=== PATIENT | female | born 1990 | race Caucasian/White ===

== ENCOUNTER 2018-04-03 20:36 | Emergency (ER) | payer OTHER ==
--- NOTE | 2018-04-03 20:59 | PDOC ---
Rapid Medical Evaluation Chief Complaint: Carbon Monoxide Exposure Time Seen by Provider: 04/03/18 20:56 Medical Evaluation: 04/03/18 20:57 c/o headache and feeling tired. reports that there was a slow gas leak and carbon monoxide exposure. PE : patient alert A; carbon monoxide exposure P: abg oxygen Discharge Disposition - Diagnosis Carbon monoxide exposure - Referrals - Patient Instructions - Post Discharge Activity
[2018-04-03 21:00] VITALS: BP 113/63; TEMP 98.3; BMI 34.0
[2018-04-03 22:31] LABS: ARTERIAL BLD GAS O2 SATURATION 96.6 % (90-98.9); ARTERIAL BLOOD GAS BASE EXCESS 0.9 meq/l (-2-2); ARTERIAL BLOOD GAS PCO2 40.3 mmHg (35-45); ARTERIAL BLOOD GAS pH 7.41 (7.35-7.45); CARBOXYHEMOGLOBIN 1.8 gm% (0.5-2.0)
[2018-04-03 22:33] LABS: ALLENS TEST POSITIVE
--- NOTE | 2018-04-03 22:43 | PDOC ---
History of Present Illness <Valerie Presley - Last Filed: 04/03/18 22:41> - General History Source: Patient Exam Limitations: No Limitations - History of Present Illness Initial Comments: 04/03/18 23:33 The patient 27-year-old female, with no past medical history, who presents to the ED for possible carbon monoxide exposure during the past 2 weeks. The patient reports intermittent headaches and nausea. She reports feeling short of breath and fatigued recently. The patient denies any fever, chills, cough, vomiting, diarrhea, or abdominal pain. Denies any chest pain or palpitations. Denies any urinary complaints. Allergies: NKA Surgical History: gastric bypass surgery. <Hallie Maxwell - Last Filed: 04/03/18 23:58> - General Chief Complaint: Carbon Monoxide Exposure Stated Complaint: R/O CARBON MONOXIDE EXPOSURE Time Seen by Provider: 04/03/18 20:56 Past History - Past Medical History COPD: No Other medical history: Pt denies - Surgical History Cholecystectomy: Yes GI Surgery: Yes (Gastric bypass) - Suicide/Smoking/Psychosocial Hx Smoking History: Never smoked Have you smoked in the past 12 months: No Information on smoking cessation initiated: No Hx Alcohol Use: No Drug/Substance Use Hx: No Substance Use Type: None <Valerie Presley - Last Filed: 04/03/18 22:41> <Hallie Maxwell - Last Filed: 04/03/18 23:58> - Past Medical History Allergies/Adverse Reactions: Allergies Allergy/AdvReac Type Severity Reaction Status Date / Time No Known Allergies Allergy Verified 04/03/18 20:57 Review of Systems - Review of Systems Able to Perform ROS?: Yes Comments:: 04/03/18 23:46 GENERAL/CONSTITUTIONAL: (+)Fatigue. No fever or chills. No weakness. HEAD, EYES, EARS, NOSE AND THROAT: No change in vision. No ear pain or discharge. No sore throat. CARDIOVASCULAR: (+)Shortness of breath. No chest pain. RESPIRATORY: No cough, wheezing, or hemoptysis. GASTROINTESTINAL: (+)Nausea. No vomiting, diarrhea or constipation. GENITOURINARY: No dysuria, frequency, or change in urination. MUSCULOSKELETAL: No joint or muscle swelling or pain. No neck or back pain. SKIN: No rash NEUROLOGIC: (+)Headache. No vertigo, loss of consciousness, or change in strength/sensation. ENDOCRINE: No increased thirst. No abnormal weight change. HEMATOLOGIC/LYMPHATIC: No anemia, easy bleeding, or history of blood clots. ALLERGIC/IMMUNOLOGIC: No hives or skin allergy. <Hallie Maxwell - Last Filed: 04/03/18 23:58> *Physical Exam - Vital Signs Last Vital Signs Temp Pulse Resp BP Pulse Ox 98.3 F 66 18 113/63 97 04/03/18 20:57 04/03/18 20:57 04/03/18 20:57 04/03/18 20:57 04/03/18 20:57 <Valerie Presley - Last Filed: 04/03/18 22:41> - Vital Signs Last Vital Signs Temp Pulse Resp BP Pulse Ox 98.3 F 66 18 113/63 97 04/03/18 20:57 04/03/18 20:57 04/03/18 20:57 04/03/18 20:57 04/03/18 20:57 - Physical Exam Comments: 04/03/18 23:49 GENERAL: Awake, alert, and fully oriented, in no acute distress HEAD: No signs of trauma EYES: PERRLA, EOMI, sclera anicteric, conjunctiva clear ENT: Auricles normal inspection, hearing grossly normal, nares patent, oropharynx clear without exudates. Moist mucosa NECK: Normal ROM, supple, no lymphadenopathy, JVD, or masses LUNGS: Breath sounds equal, clear to auscultation bilaterally. No wheezes, and no crackles HEART: Regular rate and rhythm, normal S1 and S2, no murmurs, rubs or gallops ABDOMEN: Soft, nontender, normoactive bowel sounds. No guarding, no rebound. No masses EXTREMITIES: Normal range of motion, no edema. No clubbing or cyanosis. No cords, erythema, or tenderness NEUROLOGICAL: Cranial nerves II through XII grossly intact. Normal speech, normal gait SKIN: Warm, Dry, normal turgor, no rashes or lesions noted. <Hallie Maxwell - Last Filed: 04/03/18 23:58> ED Treatment Course - ADDITIONAL ORDERS Additional order review: Laboratory Results 04/03/18 22:05 Puncture Site Right radial ABG pH 7.41 ABG pCO2 at Pt Temp 40.3 ABG pO2 at Pt Temp 80.0 ABG HCO3 25.0 ABG O2 Sat (Measured) 96.6 ABG O2 Content 15.1 ABG Base Excess 0.9 Richard Test Positive Carboxyhemoglobin 1.8 Methemoglobin 1.4 O2 Delivery Device N/c Oxygen Flow Rate 2l <Valerie Presley - Last Filed: 04/03/18 22:41> - ADDITIONAL ORDERS Additional order review: Laboratory Results 04/03/18 22:05 Puncture Site Right radial ABG pH 7.41 ABG pCO2 at Pt Temp 40.3 ABG pO2 at Pt Temp 80.0 ABG HCO3 25.0 ABG O2 Sat (Measured) 96.6 ABG O2 Content 15.1 ABG Base Excess 0.9 Richard Test Positive Carboxyhemoglobin 1.8 Methemoglobin 1.4 O2 Delivery Device N/c Oxygen Flow Rate 2l <Hallie Maxwell - Last Filed: 04/03/18 23:58> Medical Decision Making - Medical Decision Making 04/03/18 22:41 27yo female with carbon monoxide exposure -has had intermittent nausea and headaches. -currently on O2 - feeling better -neuro intact -will obtain abg -will monitor and reassess 04/03/18 22:42 abg does not show an elevated carboxyhgb level pt is stable for d/c to home. <Valerie Presley - Last Filed: 04/03/18 22:41> *DC/Admit/Observation/Transfer - Discharge Dispostion Decision to Admit order: No - Attestations Physician Attestion: 04/03/18 22:43 I, Dr. Valerie Presley DO, attest that this document has been prepared under my direction and personally reviewed by me in its entirety. I further attest, that it accurately reflects all work, treatment, procedures and medical decision -making performed by me. <Valerie Presley - Last Filed: 04/03/18 22:41> - Attestations Scribe Attestion: 04/03/18 23:50 Documentation prepared by Hallie Maxwell, acting as mobile paramedical examiner for Valerie Presley DO. <Hallie Maxwell - Last Filed: 04/03/18 23:58> Diagnosis at time of Disposition: Carbon monoxide exposure - Discharge Dispostion Disposition: HOME Condition at time of disposition: Stable - Referrals Referrals: Joseph Hernandez [Primary Care Provider] - - Patient Instructions Printed Discharge Instructions: Carbon Monoxide Poisoning Additional Instructions: Please follow up with your PMD. Please return to the ED with any further concerns or complaints. Please do not return to the house until cleared by [facility]. - Post Discharge Activity
[2018-04-04 00:08] VITALS: PULSE 71
== END 2018-04-04 00:08 | disposition home or self-care (01) ==
LOC: JER 20:36 → JERFT 20:36 → JER 04-04 00:08
DX: Z77.29 Contact with and (suspected) exposure to other hazardous substances (principal)
CPT/HCPCS: 36600; 82375; 82803; 83050; 99282-25